=== PATIENT | female | born 1955 | race Caucasian/White ===

== ENCOUNTER 2022-10-07 19:02 | Emergency (ER) | payer OTHER ==
[~2022-10-07] VITALS: Ht 154.9 cm; Wt 50.8 kg
[2022-10-07 19:55] VITALS: BP 145/90
--- NOTE | 2022-10-07 19:58 | NUR ---
TO LOBBY A/W BED AMBULATORY
--- NOTE | 2022-10-07 23:16 | NUR ---
Patient being evaluated by physician at bedside.
[2022-10-07] MEDS ORDERED: CYCL-711 PO (23:29)
[2022-10-07] MEDS ORDERED: NAPR-1704 PO (23:29)
[2022-10-07] MEDS ORDERED: IBUPROFEN 400 MG TAB PO ONE (23:30)
--- NOTE | 2022-10-07 23:36 | NUR ---
patient refused medication and sling.
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
== END 2022-10-07 23:45 | disposition home or self-care (01) ==
LOC: MED 19:02
DX: S46.812A Strain of other muscles, fascia and tendons at shoulder and upper arm level, left arm, initial encounter (principal); Z88.5 Allergy status to narcotic agent; Z88.6 Allergy status to analgesic agent; Z79.899 Other long term (current) drug therapy; V89.2XXA Person injured in unspecified motor-vehicle accident, traffic, initial encounter; Y93.89 Activity, other specified; Y92.488 Other paved roadways as the place of occurrence of the external cause; Y99.8 Other external cause status
CPT/HCPCS: 73030; 99283